=== PATIENT | male | born 1985 ===

== ENCOUNTER 2023-11-02 21:26 | Emergency (ER) | payer OTHER ==
[~2023-11-02] VITALS: Ht 170.2 cm; Wt 68.0 kg
[2023-11-02] MEDS ORDERED: FAMO20TA8 PO (21:49)
[2023-11-02] MEDS ORDERED: LEVE1000 PO (21:49)
[2023-11-02] MEDS ORDERED: IBUP-2314 PO (21:49)
[2023-11-02] MEDS ORDERED: LISI20TA30 PO (21:49)
[2023-11-02] MEDS ORDERED: GABA-532 PO (21:49)
[2023-11-02] MEDS ORDERED: FOLI1TAB27 PO (21:49)
[2023-11-02] MEDS ORDERED: TOPI100T38 PO (21:49)
[2023-11-02] MEDS ORDERED: QUET100T PO ×2 (21:49)
[2023-11-02] MEDS ORDERED: SERT100T PO (21:49)
[2023-11-02] MEDS ORDERED: [UNRECOGNIZED DRUG - CODE] PO (21:49)
[2023-11-02] MEDS ORDERED: PANT40TA49 PO (21:49)
[2023-11-02] MEDS ORDERED: LOPE2TAB25 PO (21:49)
[2023-11-02] MEDS ORDERED: RISP3TAB61 PO (21:49)
[2023-11-02 22:14] LABS: BASOPHILS # (AUTO) 0.1 K/UL (0.0-0.2); BASOPHILS % (AUTO) 1.3 % (0.0-2.0); EOSINOPHILS # (AUTO) 0.2 K/uL (0.0-0.7); HEMATOCRIT 37.8 % (36.7-47.1); HEMOGLOBIN 12.7 g/dL (12.5-16.3); LYMPHOCYTES # (AUTO) 2.3 K/uL (0.8-4.8); LYMPHOCYTES % (AUTO) 37.1 % (20.5-51.5); MEAN CORPUSCULAR HEMOGLOBIN 29.3 uug (23.8-33.4); MEAN CORPUSCULAR HGB CONC 34 g/dL (32.5-36.3); MEAN CORPUSCULAR VOLUME 87.6 fL (73.0-96.2); MONOCYTES # (AUTO) 0.5 K/uL (0.1-1.30); MONOCYTES % (AUTO) 7.5 % (0.0-11.0); NEUTROPHILS # (AUTO) 3.2 K/uL (1.8-8.9); NEUTROPHILS % (AUTO) 51.1 % (38.5-71.5); PLATELET COUNT (AUTO) 217 K/uL (152-348); RED BLOOD CELL COUNT(AUTO) 4.31 MIL/uL (4.06-5.63); RED CELL DISTRIBUTION WIDTH 13.6 % (12.1-16.2); WHITE BLOOD COUNT (AUTO) 6.2 K/uL (3.6-10.2)
[2023-11-02 22:19] LABS: DIFFERENTIAL COMMENT 1
[2023-11-02 22:29] LABS: ALANINE AMINOTRANSFERASE 17 U/L (16-63); ALBUMIN 3.7 g/dL (3.4-5.0); ALKALINE PHOSPHATASE 147 U/L (50-136); ASPARTATE AMINOTRANSFERASE 6 U/L (15-37); BILIRUBIN,TOTAL 0.4 mg/dL (0.2-1.0); CALCIUM 9.2 mg/dL (8.5-10.1); CARBON DIOXIDE 23 mmol/L (21-32); CHLORIDE 106 mmol/L (98-107); CREATINE KINASE, TOTAL 95 U/L (39-308); CREATININE 0.6 mg/dL (0.6-1.3); GLUCOSE 100 mg/dL (74-106); POTASSIUM 3.3 mmol/L (3.5-5.1); SODIUM SERUM 140 mmol/L (136-145); TOTAL PROTEIN, SERUM 7.2 g/dL (6.4-8.2); UREA NITROGEN, BLOOD 14 mg/dL (7-18)
[2023-11-02 22:35] LABS: PHENYTOIN (DILANTIN) < 0.5 ug/mL (10.0-20.0)
[2023-11-02 22:37] LABS: ETHANOL < 3 MG/DL (0-10)
[2023-11-03] MEDS ORDERED: POTASSIUM CHLORIDE 20 MEQ TAB.PRT.SR ONE (01:23)
[2023-11-03] MEDS ORDERED: ACETAMINOPHEN ES 500 MG TABLET ONE (01:23)
[2023-11-03] MEDS: POTASSIUM CHLORIDE 20 MEQ TAB.PRT.SR PO ONE (01:27)
[2023-11-03] MEDS: ACETAMINOPHEN ES 500 MG TABLET PO ONE (01:27)
[2023-11-03 06:08] VITALS: O2SAT 98
== END 2023-11-03 06:45 | disposition short-term general hospital (02) ==
LOC: ER 21:31
DX: S06.5XAA Traumatic subdural hemorrhage with loss of consciousness status unknown, initial encounter (principal); R41.82 Altered mental status, unspecified; G40.909 Epilepsy, unspecified, not intractable, without status epilepticus; R11.2 Nausea with vomiting, unspecified; E87.6 Hypokalemia; G43.909 Migraine, unspecified, not intractable, without status migrainosus; K21.9 Gastro-esophageal reflux disease without esophagitis; F32.A Depression, unspecified; F20.9 Schizophrenia, unspecified; Z79.899 Other long term (current) drug therapy; X58.XXXA Exposure to other specified factors, initial encounter; Y93.89 Activity, other specified; Y92.89 Other specified places as the place of occurrence of the external cause; Y99.8 Other external cause status
CPT/HCPCS: 36415; 70450; 80299; 83605; 85025; 93005; A4606; A4663; A9150; G0480